=== PATIENT | male | born 1975 | race Caucasian/White ===

== ENCOUNTER 2018-06-20 11:49 | Outpatient (CLI) | payer BC, SELFPAY ==
[2018-06-20 13:32] LABS: ALT 28 U/L (12-78); AST 29 U/L (15-37); Alkaline Phosphatase 84 U/L (46-116); Anion Gap 9.5 mmol/L (3-11); BUN 14 mg/dL (7-18); Bilirubin, Total 0.6 mg/dL (0.2-1.0); CO2 27.5 mmol/L (21.0-32.0); CREATININE 0.93 mg/dL (0.70-1.30); Calcium 8.3 mg/dL (8.5-10.1); Chloride 106 mmol/L (98-107); Cholesterol 173 mg/dL (50-200); Glucose 88 mg/dL (70-100); HDL Cholesterol 57 mg/dL (40-60); LDL CHOLESTEROL 110 mg/dL (<100); Potassium 4.1 mmol/L (3.5-5.1); Sodium 143 mmol/L (136-145); Total Protein 6.7 g/dL (6.4-8.2); Triglyceride 83 mg/dL (30-150)
== END 2018-06-20 12:09 ==
PROVIDERS: PCP Family Medicine; Visit Provider Family Medicine
DX: Z13.220 Encounter for screening for lipoid disorders (principal)
CPT/HCPCS: 36415; 80053; 80061; 83721

== ENCOUNTER 2018-12-20 11:15 | Emergency (ER) | payer BC, SELFPAY ==
--- NOTE | 2018-12-20 11:18 | W.ED.GENAD ---
Discharge Plan Disposition Patient Disposition: HOME Condition: Stable Discharge Details Chief Complaint: Vascular Clinical Impression: Right leg swelling Primary Care Provider: Scott Jane ED Provider: Jeremie Jackson Home Meds and New Rx's Prescriptions: No Action multivitamin [Daily Multi-Vitamin] 1 EACH tablet 1 ea PO DAILY RF: 0 Discharge Instructions Additional Instructions: you should be contacted with an appointment for an ultrasound if you develop severe worsening pain, fevers or difficulty breathing or chest pain return to the emergency department for an evaluation Medical Decision Making 43 yo male who denies chronic medical problems comes in with right leg swelling since yesteday, no recent travel or surgeries or immobilization. Has mild pain of anterior knee with full rom, does have mild swelling of the lower leg compared to the left. Denies any trauma, has no warmth or crepitus to suggest infection. Will obtain u/s to eval for dvt though clinical suspicion is low pt is not willing to wait at this time for an u/s. He is willing to come back to have it done so will place outpatient order for the pt and he will return if he worsens Differential Diagnosis guy's cyst, dvt, lymphedema HPI General Mode of arrival: ambulatory. Date/Time Provider Initiated Documentation: 12/20/18 11:18. Limitations to Documentation: no limitations. Information obtained by: patient. History of Present Illness 43 year old M presents to the emergency department with the chief complaint of right leg swelling, Quality is described as aching, and is localized to the right and lower extremity. Patient started experiencing this day(s) (1) and it has been constant. No relieving factors improve symptom(s), No exacerbating factors reported . Patient notes no other symptoms.. Patient did receive the following treatments prior to arrival, none Related Data Home Medications Medication Instructions Recorded Confirmed multivitamin [Multi-Vitamin Daily] 1 ea PO DAILY 03/13/18 12/20/18 Allergies Allergy/AdvReac Type Severity Reaction Status Date / Time No Known Allergies Allergy Verified 12/20/18 11:29 Review of Systems Review of Systems All systems reviewed & are unremarkable except as noted in HPI and below Constitutional Denies chills and Denies fever(s) Cardiovascular Denies chest pain and Denies dyspnea Respiratory Denies cough and Denies dyspnea Gastrointestinal Denies abdominal pain, Denies nausea and Denies vomiting Genitourinary Denies dysuria [facility] Surgical History History of dental surgery (Acute) Repair of inguinal hernia Family History Mother No problems noted. Father Essential hypertension Brother No problems noted. Brother No problems noted. Social History Smoking/Tobacco Use Status: Former Tobacco Use Quit Date: 10/02/99 Alcohol Intake: current Alcohol Intake frequency: 0-2 drinks per day Alcohol type: beer Substance use type: does not use Do you feel safe at home: Yes Do you feel safe in your relationship?: Yes Exam Const General: no acute distress Orientation: alert HENMT Head: normal to inspection Ears: external ears normal General nose exam: external nose normal Mouth: moist mucous membranes Eyes General: appearance normal, both eyes and all related structures Neck Neck: normal visual inspection Resp Effort & Inspection: normal respiratory effort and able to speak in complete sentences Cardio Rate: regular rate Skin General skin exam: no rashes or lesions noted Neuro General: alert and oriented x3 Extrem General: full ROM and normal capillary refill Psych Mental Status: mental status grossly normal
[2018-12-20 11:26] VITALS: BP 138/79; PULSE 63; RESP 18; TEMP 36.8; O2SAT 100
--- NOTE | 2018-12-20 11:31 | ED.GENADUL_ITS ---
Discharge Plan Disposition Patient Disposition: HOME Condition: Stable Discharge Details Chief Complaint: Vascular Clinical Impression: Right leg swelling Primary Care Provider: Scott Jane ED Provider: Jeremie Jackson Home Meds and New Rx's Prescriptions: No Action multivitamin [Daily Multi-Vitamin] 1 EACH tablet 1 ea PO DAILY RF: 0 Discharge Instructions Additional Instructions: you should be contacted with an appointment for an ultrasound if you develop severe worsening pain, fevers or difficulty breathing or chest pain return to the emergency department for an evaluation Medical Decision Making 43 yo male who denies chronic medical problems comes in with right leg swelling since yesteday, no recent travel or surgeries or immobilization. Has mild pain of anterior knee with full rom, does have mild swelling of the lower leg compared to the left. Denies any trauma, has no warmth or crepitus to suggest infection. Will obtain u/s to eval for dvt though clinical suspicion is low pt is not willing to wait at this time for an u/s. He is willing to come back to have it done so will place outpatient order for the pt and he will return if he worsens Differential Diagnosis guy's cyst, dvt, lymphedema HPI General Mode of arrival: ambulatory . Date/Time Provider Initiated Documentation: 12/20/18 11:18 . Limitations to Documentation: no limitations . Information obtained by: patient . History of Present Illness 43 year old M presents to the emergency department with the chief complaint of right leg swelling, Quality is described as aching, and is localized to the right and lower extremity. Patient started experiencing this day(s) (1) and it has been constant. No relieving factors improve symptom(s), No exacerbating factors reported . Patient notes no other symptoms.. Patient did receive the following treatments prior to arrival, none Related Data Home Medications Medication Instructions Recorded Confirmed multivitamin [Multi-Vitamin Daily] 1 ea PO DAILY 03/13/18 12/20/18 Allergies Allergy/AdvReac Type Severity Reaction Status Date / Time No Known Allergies Allergy Verified 12/20/18 11:29 Review of Systems Review of Systems All systems reviewed & are unremarkable except as noted in HPI and below Constitutional Denies chills and Denies fever(s) Cardiovascular Denies chest pain and Denies dyspnea Respiratory Denies cough and Denies dyspnea Gastrointestinal Denies abdominal pain, Denies nausea and Denies vomiting Genitourinary Denies dysuria [facility] Surgical History History of dental surgery (Acute) Repair of inguinal hernia Family History Mother No problems noted. Father Essential hypertension Brother No problems noted. Brother No problems noted. Social History Smoking/Tobacco Use Status: Former Tobacco Use Quit Date: 10/02/99 Alcohol Intake: current Alcohol Intake frequency: 0-2 drinks per day Alcohol type: beer Substance use type: does not use Do you feel safe at home: Yes Do you feel safe in your relationship?: Yes Exam Const General: no acute distress Orientation: alert HENMT Head: normal to inspection Ears: external ears normal General nose exam: external nose normal Mouth: moist mucous membranes Eyes General: appearance normal, both eyes and all related structures Neck Neck: normal visual inspection Resp Effort & Inspection: normal respiratory effort and able to speak in complete sentences Cardio Rate: regular rate Skin General skin exam: no rashes or lesions noted Neuro General: alert and oriented x3 Extrem General: full ROM and normal capillary refill Psych Mental Status: mental status grossly normal
== END 2018-12-20 12:11 | disposition home or self-care (01) ==
PROVIDERS: Emergency Provider Emergency Medicine; PCP Family Medicine
DX: R60.0 Localized edema (principal); M25.561 Pain in right knee
CPT/HCPCS: 99281

== ENCOUNTER 2018-12-21 05:50 | Outpatient (CLI) | payer BC, SELFPAY ==
--- NOTE | 2018-12-21 09:27 | DI.US_ITS ---
SYMPTOM/DIAGNOSIS: RT LEG SWELLING, ? DVT RIGHT LOWER EXTREMITY ULTRASOUND: The deep veins of the right lower extremity show normal compression, augmentation and color flow. There is no evidence of a deep venous thrombus present. The saphenofemoral junction appears unremarkable. No focal fluid collection is seen in the right lower extremity. IMPRESSION: No evidence of a right lower extremity deep venous thrombus.
== END 2018-12-21 06:10 ==
PROVIDERS: PCP Family Medicine; Visit Provider Emergency Medicine
DX: R22.41 Localized swelling, mass and lump, right lower limb (principal)
CPT/HCPCS: 93971

== ENCOUNTER 2018-12-21 09:30 | Emergency (ER) | payer BC, SELFPAY ==
[2018-12-21 09:33] VITALS: BP 142/82; PULSE 58; RESP 20; TEMP 36.8; O2SAT 98
[2018-12-21 09:35] VITALS: RESP 20
--- NOTE | 2018-12-21 09:48 | W.ED.GENAD ---
Discharge Plan Disposition Patient Disposition: HOME Condition: Stable Discharge Details Chief Complaint: Vascular Clinical Impression: Right leg swelling Primary Care Provider: Scott Jane ED Provider: Jeremie Jackson Home Meds and New Rx's Prescriptions: No Action multivitamin [Daily Multi-Vitamin] 1 EACH tablet 1 ea PO DAILY RF: 0 Discharge Instructions Instructions: Leg Edema (ED) Medical Decision Making pt comes in after he had an u/s of his right lower leg, has had swelling for about a week and could not wait for u/s yesterday so had it done today, is negative per u/s tech. HE still has no rashes or other infecitous symptoms. I suspect a knee sprain given mild pain in the knee that led to swelling. ADvised f/u with pcp and return precautions given. Leg swelling is unilateral and has no respiratory symptoms or chest pain so do not feel chf likely or ARF likel Differential Diagnosis strain, sprain, lymphedema Imaging Data Radiologic Study: Attestation: I personally reviewed and interpreted this imaging study as follows: Imaging: Ultrasound My impression: no acute findings HPI General Mode of arrival: ambulatory. Date/Time Provider Initiated Documentation: 12/21/18 09:42. Limitations to Documentation: no limitations. Information obtained by: patient. History of Present Illness 43 year old M presents to the emergency department with the chief complaint of leg swelling, described as mild, Patient started experiencing this week(s) (1) No relieving factors improve symptom(s), No exacerbating factors reported . Patient notes no other symptoms.. Patient did receive the following treatments prior to arrival, none Related Data Home Medications Medication Instructions Recorded Confirmed multivitamin [Multi-Vitamin Daily] 1 ea PO DAILY 03/13/18 12/21/18 Allergies Allergy/AdvReac Type Severity Reaction Status Date / Time No Known Allergies Allergy Verified 12/21/18 09:35 General Stated Complaint: Vascular BRAYAN: 4 Review of Systems Review of Systems All systems reviewed & are unremarkable except as noted in HPI and below Constitutional Denies chills and Denies fever(s) ENT Denies change in voice Cardiovascular Denies chest pain and Denies dyspnea Respiratory Denies cough and Denies dyspnea Gastrointestinal Denies abdominal pain, Denies nausea and Denies vomiting Musculoskeletal Denies joint swelling Integumentary/Breasts Denies rash [facility] Surgical History History of dental surgery (Acute) Repair of inguinal hernia Social History Smoking/Tobacco Use Status: Never Alcohol Intake: never Substance use type: does not use Do you feel safe at home: Yes Do you feel safe in your relationship?: Yes Exam Const General: no acute distress Orientation: alert HENMT Head: normal to inspection Ears: external ears normal General nose exam: external nose normal Mouth: moist mucous membranes Eyes General: appearance normal, both eyes and all related structures Neck Neck: normal visual inspection Resp Effort & Inspection: normal respiratory effort and able to speak in complete sentences Cardio Rate: regular rate Skin General skin exam: no rashes or lesions noted Neuro General: alert and oriented x3 Extrem General: normal capillary refill Psych Mental Status: mental status grossly normal Course Vital Signs Temperature 36.8 C 12/21/18 09:33 Pulse 58 L 12/21/18 09:33 Respiratory Rate 20 12/21/18 09:33 Blood Pressure 142/82 H 12/21/18 09:33 Pulse Oximetry 98 12/21/18 09:33 Temperature 36.8 C 12/21/18 09:33 Temperature Source Temporal Artery Scan 12/21/18 09:33 Pulse 58 L 12/21/18 09:33 Respiratory Rate 20 12/21/18 09:35 Respiratory Effort Non-Labored 12/21/18 09:35 Respiratory Depth Normal 12/21/18 09:35 Respiratory Pattern Normal 12/21/18 09:35 Blood Pressure 142/82 H 12/21/18 09:33 Blood Pressure Position Standing 12/21/18 09:33 Pulse Oximetry 98 12/21/18 09:33 Oxygen Delivery Method Room Air 12/21/18 09:33 Oxygen Flow Rate 0 12/21/18 09:33 Pain Level 1 12/21/18 09:33
--- NOTE | 2018-12-21 09:51 | ED.GENADUL_ITS ---
Discharge Plan Disposition Patient Disposition: HOME Condition: Stable Discharge Details Chief Complaint: Vascular Clinical Impression: Right leg swelling Primary Care Provider: Scott Jane ED Provider: Jeremie Jackson Home Meds and New Rx's Prescriptions: No Action multivitamin [Daily Multi-Vitamin] 1 EACH tablet 1 ea PO DAILY RF: 0 Discharge Instructions Instructions: Leg Edema (ED) Medical Decision Making pt comes in after he had an u/s of his right lower leg, has had swelling for about a week and could not wait for u/s yesterday so had it done today, is negative per u/s tech. HE still has no rashes or other infecitous symptoms. I suspect a knee sprain given mild pain in the knee that led to swelling. ADvised f/u with pcp and return precautions given. Leg swelling is unilateral and has no respiratory symptoms or chest pain so do not feel chf likely or ARF likel Differential Diagnosis strain, sprain, lymphedema Imaging Data Radiologic Study: Attestation: I personally reviewed and interpreted this imaging study as follows: Imaging: Ultrasound My impression: no acute findings HPI General Mode of arrival: ambulatory . Date/Time Provider Initiated Documentation: 12/21/18 09:42 . Limitations to Documentation: no limitations . Information obtained by: patient . History of Present Illness 43 year old M presents to the emergency department with the chief complaint of leg swelling, described as mild, Patient started experiencing this week(s) (1) No relieving factors improve symptom(s), No exacerbating factors reported . Patient notes no other symptoms.. Patient did receive the following treatments prior to arrival, none Related Data Home Medications Medication Instructions Recorded Confirmed multivitamin [Multi-Vitamin Daily] 1 ea PO DAILY 03/13/18 12/21/18 Allergies Allergy/AdvReac Type Severity Reaction Status Date / Time No Known Allergies Allergy Verified 12/21/18 09:35 General Stated Complaint: Vascular BRAYAN: 4 Review of Systems Review of Systems All systems reviewed & are unremarkable except as noted in HPI and below Constitutional Denies chills and Denies fever(s) ENT Denies change in voice Cardiovascular Denies chest pain and Denies dyspnea Respiratory Denies cough and Denies dyspnea Gastrointestinal Denies abdominal pain, Denies nausea and Denies vomiting Musculoskeletal Denies joint swelling Integumentary/Breasts Denies rash [facility] Surgical History History of dental surgery (Acute) Repair of inguinal hernia Social History Smoking/Tobacco Use Status: Never Alcohol Intake: never Substance use type: does not use Do you feel safe at home: Yes Do you feel safe in your relationship?: Yes Exam Const General: no acute distress Orientation: alert HENMT Head: normal to inspection Ears: external ears normal General nose exam: external nose normal Mouth: moist mucous membranes Eyes General: appearance normal, both eyes and all related structures Neck Neck: normal visual inspection Resp Effort & Inspection: normal respiratory effort and able to speak in complete sentences Cardio Rate: regular rate Skin General skin exam: no rashes or lesions noted Neuro General: alert and oriented x3 Extrem General: normal capillary refill Psych Mental Status: mental status grossly normal Course Vital Signs Temperature 36.8 C 12/21/18 09:33 Pulse 58 L 12/21/18 09:33 Respiratory Rate 20 12/21/18 09:33 Blood Pressure 142/82 H 12/21/18 09:33 Pulse Oximetry 98 12/21/18 09:33 Temperature 36.8 C 12/21/18 09:33 Temperature Source Temporal Artery Scan 12/21/18 09:33 Pulse 58 L 12/21/18 09:33 Respiratory Rate 20 12/21/18 09:35 Respiratory Effort Non-Labored 12/21/18 09:35 Respiratory Depth Normal 12/21/18 09:35 Respiratory Pattern Normal 12/21/18 09:35 Blood Pressure 142/82 H 12/21/18 09:33 Blood Pressure Position Standing 12/21/18 09:33 Pulse Oximetry 98 12/21/18 09:33 Oxygen Delivery Method Room Air 12/21/18 09:33 Oxygen Flow Rate 0 12/21/18 09:33 Pain Level 1 12/21/18 09:33
[2018-12-21 09:56] VITALS: BP 142/82; PULSE 58; RESP 20; TEMP 36.8; O2SAT 98
== END 2018-12-21 09:56 | disposition home or self-care (01) ==
PROVIDERS: Emergency Provider Emergency Medicine; PCP Family Medicine
DX: R22.41 Localized swelling, mass and lump, right lower limb (principal); M25.561 Pain in right knee
CPT/HCPCS: 99284

== ENCOUNTER 2020-04-06 11:54 | Outpatient (CLI) | payer BC, SELFPAY ==
[2020-04-11 02:47] LABS: SARS-CoV-2 RNA Undetected (Undetected); SARS-CoV-2 Specimen Source Nasopharynx
== END 2020-04-06 12:14 ==
PROVIDERS: PCP Family Medicine; Visit Provider Family Medicine
DX: Z11.59 Encounter for screening for other viral diseases (principal)
CPT/HCPCS: U0003

== ENCOUNTER 2020-11-19 02:48 | Outpatient (REF) | payer BC, SELFPAY ==
[2020-11-20 09:13] LABS: HBs Antibody, Quant 4.7 mIU/mL (See Note); Hepatitis B Surface Ab Negative (See Note)
[2020-11-20 10:01] LABS: Measles IgG Antibody Positive (See Note); Mumps Antibody IgG Positive (See Note); Rubella IgG Ab (UVM) Positive (See Note); Varicella IgG Antibody Positive (See Note)
[2020-11-23 15:35] LABS: TB Interpretation Negative (Negative)
== END 2020-11-19 02:49 | disposition home or self-care (01) ==
LOC: LBO 02:48
PROVIDERS: PCP Family Medicine; Visit Provider Nurse Practitioner Family
DX: Z02.1 Encounter for pre-employment examination (principal); Z11.59 Encounter for screening for other viral diseases
CPT/HCPCS: 36415; 86706; 86787; 86480; 86735; 86762; 86765

== ENCOUNTER 2021-04-13 05:15 | Outpatient (REF) | payer BC, SELFPAY ==
--- NOTE | 2021-04-13 12:37 | DI.RAD_ITS ---
Exam(s) XR LUMBAR SPINE COMPLETE EXAM: XR LUMBAR SPINE COMPLETE CLINICAL HISTORY: Low back pain and stiffness M54.5 LOW BACK PAIN. TECHNIQUE: 2D digital imaging was performed. COMPARISON: No exams were available for comparison FINDINGS: BONES: No fracture or destructive lesion. Vertebral bodies are unremarkable. Mild facet degenerative changes are seen at L5-S1, greater on the left.. DISKS: Intervertebral disc spaces are maintained. ALIGNMENT: Lumbar spinal alignment is within normal limits. SOFT TISSUE: Normal. IMPRESSION: Facet degenerative changes L5-S1. DATA REPOSITORY: RADIATION DOSE DELIVERED:
== END 2021-04-13 05:35 ==
LOC: DI 05:15
PROVIDERS: PCP Family Medicine; Visit Provider Family Medicine
DX: M47.817 Spondylosis without myelopathy or radiculopathy, lumbosacral region (principal)
CPT/HCPCS: 72110

== ENCOUNTER → 2022-07-13 16:39 | Outpatient (CLI) | payer BC, SELFPAY ==
--- NOTE | 2022-07-13 16:00 | DI.RAD_ITS ---
Exam(s) XR SHOULDER RT COMPLETE 2+V EXAM: XR SHOULDER RT COMPLETE 2+V CLINICAL HISTORY: pain s/p fall, tender clavicle, M25.511, M89.8X1, ?fx TECHNIQUE: COMPARISON: No exams were available for comparison FINDINGS: Four views were obtained. No bony or soft tissue abnormality seen. IMPRESSION: RADIATION DOSE DELIVERED: Total DLP
== END ==
PROVIDERS: PCP Family Medicine; Visit Provider Nurse Practitioner Family
DX: M25.511 Pain in right shoulder (principal); M89.8X1 Other specified disorders of bone, shoulder
CPT/HCPCS: 73030